=== PATIENT | female | born 1960 | race Caucasian/White ===

== ENCOUNTER 2020-11-05 13:31 | Emergency (ER) | payer BC ==
--- NOTE | 2020-11-05 14:19 | EDM.PDOC ---
ED HPI GENERAL MEDICAL PROBLEM - General Chief Complaint: Bite:Animal, Insect Stated Complaint: STUNG ALLERGIC REACTION Time Seen by Provider: 11/05/20 14:19 Source of Information: Reports: Patient, RN Notes Reviewed History Limitations: Reports: No Limitations - History of Present Illness INITIAL COMMENTS - FREE TEXT/NARRATIVE: Preston presents today for Bee sting to left upper arm [employer] with edema, tingling and pain. She reports past significant reaction from a bee sting and she was instructed to use epi pen and report to the emergency room. She states she did not have and respiratory symptoms and did not use her epi pen. She denies fever, chills, nausea, vomiting, SOB, palpitations, chest pain, headache or dizziness. - Related Data Allergies Allergy/AdvReac Type Severity Reaction Status Date / Time bee venom protein (honey bee) Allergy Intermediate Swelling Verified 11/05/20 14:00 acetaminophen Allergy Mild Nausea and Verified 11/05/20 14:01 [From Tylenol-Codeine #3] Vomiting codeine Allergy Mild Nausea and Verified 11/05/20 14:01 [From Tylenol-Codeine #3] Vomiting phenazopyridine Allergy Mild Nausea and Verified 11/05/20 14:01 [From Pyridium] Vomiting Home Meds: Home Meds Aspirin 81 mg PO DAILY 11/05/20 [History] EPINEPHrine [Epipen] 0.3 mg IM ASDIRECTED PRN 11/05/20 [History] Estrogens, Conjugated [Premarin Vaginal Crm] 1 applic VAG DAILY PRN 11/05/20 [History] Multivit with Iron,Minerals [Complete Senior] 1 tab PO DAILY 11/05/20 [History] amLODIPine [Norvasc] 5 mg PO DAILY 11/05/20 [History] Past Medical History Cardiovascular History: Reports: Hypertension Genitourinary History: Reports: UTI, Recurrent Social & Family History - Tobacco Use Tobacco Use Status *Q: Never Tobacco User - Caffeine Use Caffeine Use: Reports: Coffee - Alcohol Use Days Per Week of Alcohol Use: 1 Number of Drinks Per Day: 1 Total Drinks Per Week: 1 - Recreational Drug Use Recreational Drug Use: No ED ROS GENERAL - Review of Systems Review Of Systems: See Below Constitutional: Reports: No Symptoms HEENT: Reports: No Symptoms Respiratory: Reports: No Symptoms Cardiovascular: Reports: No Symptoms Endocrine: Reports: No Symptoms GI/Abdominal: Reports: No Symptoms : Reports: No Symptoms Musculoskeletal: Reports: Other (left upper arm pain at site of bee sting) Skin: Reports: Erythema, Urticaria, Other (edema) Neurological: Reports: No Symptoms Psychiatric: Reports: No Symptoms Hematologic/Lymphatic: Reports: No Symptoms Immunologic: Reports: No Symptoms ED EXAM, ANIMAL BITE - Physical Exam Exam: See Below Exam Limited By: No Limitations General Appearance: Alert, WD/WN, No Apparent Distress Throat/Mouth: Normal Inspection, Normal Lips, Normal Gums, Normal Oropharynx, Normal Voice, No Airway Compromise Head: Atraumatic, Normocephalic Neck: Normal Inspection, Supple, Non-Tender, Full Range of Motion. No: Lymphadenopathy (R), Lymphadenopathy (L) Respiratory/Chest: No Respiratory Distress, Lungs Clear, Normal Breath Sounds, No Accessory Muscle Use, Chest Non-Tender. No: Crackles, Rales, Rhonchi, Wheezing Cardiovascular: Normal Peripheral Pulses, Regular Rate, Rhythm, No Edema, No Gallop, No Murmur, No Rub. No: Tachycardia Peripheral Pulses: 4+: Radial (L), Radial (R) Back Exam: Normal Inspection, Full Range of Motion. No: CVA Tenderness (R), CVA Tenderness (L) Extremities: Normal Range of Motion, No Pedal Edema, Normal Capillary Refill, Arm Pain (pain, erythema, edema, urticaria to left upper arm at site of bee sting) Neurological: Alert, Oriented, Normal Cognition, Normal Gait, Normal Reflexes, No Motor/Sensory Deficits Psychiatric: Normal Affect, Normal Mood Skin Exam: Normal Color, Other (with erythema, edema, urticaria to site of bee sting left upper forearm. ) Lymphatic: No Adenopathy Course - Vital Signs Last Recorded V/S: Last Vital Signs Temp 35.3 C L 11/05/20 14:13 Pulse 79 11/05/20 14:13 Resp 16 11/05/20 14:13 BP 159/99 H 11/05/20 14:13 Pulse Ox 100 11/05/20 14:13 - Orders/Labs/Meds Meds: Medications Discontinued Medications Generic Name Dose Route Start Last Admin Trade Name Freq PRN Reason Stop Dose Admin Diphenhydramine HCl 50 mg 11/05/20 14:29 11/05/20 14:37 Diphenhydramine 25 Mg Cap PO 11/05/20 14:30 50 mg ONETIME ONE Administration Famotidine 20 mg 11/05/20 14:29 11/05/20 14:38 Famotidine 20 Mg Tab PO 11/05/20 14:30 20 mg ONETIME ONE Administration - Re-Assessments/Exams Free Text/Narrative Re-Assessment/Exam: No respiratory distress noted. We will administer benadryl and pepcid in emergency room. Instymed prescription for prednisone burst. Patient in agreement with plan. Departure - Departure Time of Disposition: 14:31 Disposition: Home, Self-Care 01 Condition: Good Clinical Impression: Bee sting reaction - Discharge Information *PRESCRIPTION DRUG MONITORING PROGRAM REVIEWED*: No *COPY OF PRESCRIPTION DRUG MONITORING REPORT IN PATIENT GURPREET: No Instructions: Bee, Wasp, or Hornet Sting, Adult Referrals: [facility] [Other] Forms: ED Department Discharge Additional Instructions: You have been evaluated and treated for bee sting left upper forearm today. You were given benadryl 50mg by mouth and pepcid 20mg by mouth in the emergency room. Fill instymed script for prednisone 50mg by mouth daily for 5 days. Take benadryl (diphendydramine) 50mg by mouth three times a day until symptoms improve. Take pepcid (famotidine) 20mg by mouth twice a day for reaction (H2 paresh) until symptoms improve. You can take ibuprofen 600mg to 800mg by mouth up to three times a day for pain as needed. Drink plenty of water to stay hydrated. Keep epi pens on you in case you have another sting. Use epi pen for respiratory issues and report to nearest emergency room for care. Return at any time as needed and for any worsening. Sepsis Event Note (ED) - Evaluation Sepsis Screening Result: No Definite Risk - Focused Exam Vital Signs: Vital Signs Temp Pulse Resp BP Pulse Ox 11/05/20 14:13 35.3 C L 79 16 159/99 H 100 11/05/20 13:58 35.3 C L 79 16 159/99 H 100 - Assessment/Plan Assessment:: Bee sting reaction Plan: Patient evaluated and treated for bee sting left upper forearm today. You were given benadryl 50mg by mouth and pepcid 20mg by mouth in the emergency room. Fill instymed script for prednisone 50mg by mouth daily for 5 days. Take benadryl (diphendydramine) 50mg by mouth three times a day until symptoms improve. Take pepcid (famotidine) 20mg by mouth twice a day for reaction (H2 paresh) until symptoms improve. You can take ibuprofen 600mg to 800mg by mouth up to three times a day for pain as needed. Drink plenty of water to stay hydrated. Keep epi pens on you in case you have another sting. Use epi pen for respiratory issues and report to nearest emergency room for care. Return at any time as needed and for any worsening.
[2020-11-05] MEDS ORDERED: diphenhydrAMINE 25 MG Cap PO ONE (14:29)
[2020-11-05] MEDS ORDERED: Famotidine 20 MG Tab PO ONE (14:29)
== END 2020-11-05 14:46 | disposition home or self-care (01) ==
LOC: JP.ED 13:31
DX: T63.441A Toxic effect of venom of bees, accidental (unintentional), initial encounter (principal); I10 Essential (primary) hypertension; R60.0 Localized edema; Z79.82 Long term (current) use of aspirin; Z79.899 Other long term (current) drug therapy
CPT/HCPCS: 99282; A9270